=== PATIENT | male | born 1990 | race Caucasian/White ===

== ENCOUNTER 2020-07-19 19:24 | Emergency (ER) | payer SELFPAY ==
--- NOTE | 2020-07-19 19:31 | DI.RAD.S_ITS ---
PROCEDURE: XR FINGER RT MIN 2V INDICATIONS: trauma to finger with pain TECHNIQUE: AP hand, 2 views of the 4th digit acquired. COMPARISON: None. FINDINGS: Bones: There is a mildly comminuted transverse fracture of the 4th distal phalanx. No dislocations. Soft tissues: No suspicious soft tissue calcifications. IMPRESSION: 1. Mildly comminuted fracture of the 4th distal phalanx. Dictated by: Cristofer Andino M.D. on 07/19/2020 at 19:58 Approved by: Cristofer Andino M.D. on 07/19/2020 at 19:58
[2020-07-19 19:32] VITALS: BP 148/100; PULSE 104; RESP 17; TEMP 36.9; O2SAT 100; BMI 25.0
--- NOTE | 2020-07-19 20:12 | ED_ITS ---
HPI - Extremity Injury (Upper) <NEREIDA Botello - Last Filed: 07/19/20 20:40> General Chief Complaint: Extremity Injury, Upper Stated Complaint: thinks broke right 4th finger Time Seen by Provider: 07/19/20 19:40 Source: patient Mode of arrival: Ambulatory Limitations: no limitations History of Present Illness HPI narrative: This is a 29-year-old male, nonsmoker, who has noncontributing medical history presents to ED with significant other with chief complain of distal right ring finger pain. Right dominant hand. Reports he injured while he was holding his 60 Lbs dog by his collar with the finger and his dog decided to run off. Patient denies previous history of fracture or injury to affected finger. He has been using ice directly on his finger and feels little numb at t his time. Patient reports slightly decreased flexion motion on affected finger tip. He and significant other just moved from the [place] area to [facility] and does not currently have PCP. Related Data Allergies Allergy/AdvReac Type Severity Reaction Status Date / Time No Known Drug Allergies Allergy Verified 07/19/20 19:31 Review of Systems <NEREIDA Botello - Last Filed: 07/19/20 20:40> Review of Systems Narrative: General: Denies fever, chills, fatigue, malaise, sweats. Respiratory: Denies dyspnea, cough, wheezing, hemoptysis, sputum. Cardiovascular: Denies chest pain, palpitations, orthopnea, edema. Gastrointestinal: Denies nausea, vomiting, abdominal pain, diarrhea, constipation, melena. : Denies dysuria, frequency, incontinence, hematuria, urinary retention. Musculoskeletal: See HPI Skin: Denies rash, skin lesions, or other. Patient History <NEREIDA Botello - Last Filed: 07/19/20 20:40> Medical History No significant past medical history (Acute) Surgical History No pertinent past surgical history (Acute) Social History Smoking Status: Never smoker Smoking Status: Never smoker alcohol intake frequency: 0-2 drinks per day Substance Use Type: does not use Exam <NEREIDA Botello - Last Filed: 07/19/20 20:40> Narrative Exam Narrative: General appearance: well developed, well nourished, in no acute distress. Head: normocephalic, atraumatic, no scalp lesions, non-tender. ENT: Hearing grossly intact. Airway patent. Neck/Thyroid: neck supple, full range of motion, no visible masses or meningeal signs. No JVD, non-tender without lymphadenopathy. Skin: no suspicious rashes, lesions over visible areas. Warm and dry and appropriate color for ethnicity. Heart: no clubbing, no cyanosis, no edema. Lungs: Breathing even and unlabored. No stridor. No accessory muscles used. Able to speak in full sentences. Chest: normal shape and expansion. Abdomen: non-obese, non-distended. Neurologic: alert and oriented. Cognitive exam, [employer] SERVICE [employer] and PNS grossly intact on informal exam. Psych: good eye contact, normal affect. Initial Vital Signs Initial Vital Signs: Vital Signs Temperature 98.4 F 07/19/20 19:32 Pulse Rate 104 H 07/19/20 19:32 Respiratory Rate 17 07/19/20 19:32 Blood Pressure 148/100 H 07/19/20 19:32 Pulse Oximetry 100 07/19/20 19:32 Extrem Right upper extremity: wrist Details: normal ROM; no tenderness and no swelling and hand Details: normal to inspection, normal capillary refill, neuromotor exam normal, neurosensory exam abnormal (slightly decreased sensation ), tenderness Location: of the 4th digit Location: at the distal phalanx, vascular exam Details: radial pulse present and normal capillary refill, abnormal ROM of finger Details: pain with active ROM Location: of the 4th digit (distal finger with flexion) and pain with passive ROM and swelling Location: of the 4th digit Location: at the distal phalanx; no lacerations and no ecchymosis <Osmin Carreon MD - Last Filed: 07/20/20 00:43> Initial Vital Signs Initial Vital Signs: Vital Signs Temperature 98.4 F 07/19/20 19:32 Pulse Rate 104 H 07/19/20 19:32 Respiratory Rate 17 07/19/20 19:32 Blood Pressure 148/100 H 07/19/20 19:32 Pulse Oximetry 100 07/19/20 19:32 Procedures <NEREIDA Botello - Last Filed: 07/19/20 20:40> Orthopedic Splinting/Casting Injury #1: Side: right Upper Extremity Injury Location: finger Upper Extremity Immobilizer: aluminum form splint Post splinting neuro exam: intact Post splinting vascular exam: intact Placed by: Nursing Course <NEREIDA Botello - Last Filed: 07/19/20 20:40> Orders Ordered: ED Orders 07/19/20 19:31 XR finger RT min 2V Stat Vital Signs Vital signs: Vital Signs - 8 hr 07/19/20 19:32 07/19/20 20:53 Temperature 98.4 F Pulse Rate 104 H 72 Respiratory Rate 17 15 Blood Pressure 148/100 H 162/99 H Pulse Oximetry 100 100 <Osmin Carreon MD - Last Filed: 07/20/20 00:43> Orders Ordered: ED Orders 07/19/20 19:31 XR finger RT min 2V Stat Vital Signs Vital signs: Vital Signs - 8 hr 07/19/20 19:32 07/19/20 20:53 Temperature 98.4 F Pulse Rate 104 H 72 Respiratory Rate 17 15 Blood Pressure 148/100 H 162/99 H Pulse Oximetry 100 100 MDM - Extremity Injury (Upper) <NEREIDA Botello - Last Filed: 07/19/20 20:40> Differential Diagnosis Differential diagnosis: Likely finger sprain and other (Finger fracture) Medical Records Attestation: I reviewed the patient's medical records. Imaging Data XR-Finger : Radiologist's Impression: [place] [address] XRay Report Signed Patient: Tai Ambrosio VMR#: [id number] : 1990Acct:[id number] Age/Sex: 29 / MDate of Service: 07/19/20 Loc: ED Accession Number: [id number] Procedure: XR finger RT min 2V Ordering Provider: Osmin Carreon MD PROCEDURE: XR FINGER RT MIN 2V INDICATIONS: trauma to finger with pain TECHNIQUE: AP hand, 2 views of the 4th digit acquired. COMPARISON: None. FINDINGS: Bones: There is a mildly comminuted transverse fracture of the 4th distal phalanx. No dislocations. Soft tissues: No suspicious soft tissue calcifications. IMPRESSION: 1. Mildly comminuted fracture of the 4th distal phalanx. Dictated by: Cristofer Andino M.D. on 07/19/2020 at 19:58 Approved by: Cristofer Andino M.D. on 07/19/2020 at 19:58 [facility] Narrative Medical decision making narrative: This is a 29-year-old male who presents to ED with right dominant hand distal 4th finger pain. Patient injured when he was holding his 60 lb dog by his collar with 1 finger and the dog decided to take off. X-ray test shows mildly comminuted fracture of the 4th distal phalanx. Patient has slightly decreased sensation distally to injured side. Brisk cap refill without significant swelling. Decreased range of motion on flexion on affected finger. Affected finger was placed on aluminum finger splint. Advised to use cool pack and elevate for next couple of days to prevent swelling and help with pain. Patient declined Tylenol or Motrin at this time but advised to use these at home for pain management. Return precautions were discussed with patient and patient verbalized understanding in agreement with the treatment plan. Discharge Plan Departure Patient Disposition: Home Clinical Impression: Finger fracture, right Qualifiers: Encounter type: initial encounter Finger: ring finger Fracture type: closed Phalanx: distal Fracture alignment: displaced Qualified Code(s): S62.634A - Displaced fracture of distal phalanx of right ring finger, initial encounter for closed fracture Discharge Date/Time: 07/19/20 20:50 Instructions: DI for Finger Fracture Activity Restrictions/Additional Instructions: You have been diagnosed with [mildly comminuted fracture of the 4th distal finger per x-ray test. Please use finger splint for immobilization and support.]. What to do: *Take your medications as directed. You can use [id number] Tylenol and or Motrin as needed for discomfort. Tylenol 650-1000 mg up to 3 to 4 times a day as needed for pain. Ibuprofen 400 mg to 600 mg up to 3 to 4 times a day as needed for pain with food to decrease GI irritation. Use splint, cool pack for next couple of days, elevation to prevent swelling will help with pain. *Follow up with your primary care provider/orthopedist in 2-3 days, call for an appointment. Let them know you were seen in the ED and that we asked you to be seen in follow up. *Return to ED if you have any new, worsening, or concerning symptoms, such as [worsening pain, tingling/numbness/pale fingertip, increasing weakness, chest pain, breathing difficulty, unable to tolerate fluids or any acute concerns]. Referrals: [facility] [Outside] Paul Braxton MD [Physician] - <Osmin Carreon MD - Last Filed: 07/20/20 00:43> [facility]. This documentation has been reviewed and I agree with assessment and plan. Supervised by Osmin Carreon MD
[2020-07-19 20:53] VITALS: BP 162/99; PULSE 72; RESP 15; O2SAT 100
== END 2020-07-19 20:50 | disposition home or self-care (01) ==
PROVIDERS: Emergency Provider Nurse Practitioner Family
DX: S62.634A Displaced fracture of distal phalanx of right ring finger, initial encounter for closed fracture (principal)
CPT/HCPCS: 29130; 73140; 99283